=== PATIENT | male | born 1950 | race Caucasian/White ===

== ENCOUNTER → 2022-06-18 | Day surgery (SDC) | payer MEDICARE, BC ==
[2022-06-15 11:19] LABS: BASOPHILS % 0.5 % (0.0-1.0); EOSINOPHILS # (AUTO) 0.3 (0.0-0.4); EOSINOPHILS % 3.6 % (0.0-6.0); HEMATOCRIT 49.4 % (38.2-49.6); HEMOGLOBIN 16.4 g/dL (14.0-18.0); LYMPHOCYTES # (AUTO) 1.7 (1.0-3.2); MEAN CORPUSCULAR HEMOGLOBIN 30.3 pg (28-32); MEAN CORPUSCULAR HGB CONC 33.2 g/dL (31-35); MEAN CORPUSCULAR VOLUME 91.3 fL (81-99); MONOCYTES # (AUTO) 0.9 (0.2-0.8); MONOCYTES % 12.5 % (4.4-11.3); NEUTROPHILS # (AUTO) 4.4 (2.1-6.9); NEUTROPHILS % 60.3 % (38.7-80.0); PLATELET COUNT 194 x10e3/uL (140-360); RED BLOOD COUNT 5.41 x10e6/uL (4.3-5.7); RED CELL DISTRIBUTION WIDTH 12.4 % (11.7-14.4)
[2022-06-15 11:41] LABS: ANION GAP 11.6 mmol/L (8-16); CALCIUM 9.7 mg/dL (8.4-10.2); CREATININE, SERUM 1.01 mg/dL (0.72-1.25); POTASSIUM 3.6 mmol/L (3.5-5.1)
[~2022-06-18] MED LIST: AMLODIPINE BESY10 MG PO; ASPRIN PO; ATORVASTATIN PO; AVODART0.5 MG PO; BUPIVACAINE 0.25% 30ML SDV ONE; CALCIUM ACETAT667 M1 PO; CARVEDILOL12.5 MG PO; FLOMAX0.4 MG PO; HYDROCHLOROTHIA25 MG PO; HYDROCODONE/APAP 7.5MG-325MG 1 EA TAB ONE; LANSOPRAZOLE30 MG; MULTIVITAMIN SENIOR PO; OMEPRAZOLE-BIC1 EACH PO; RAPAFLO8 MG PO; TOPROL XL25 MG PO
[2022-06-18 13:15] VITALS: BP 136/74
== END | disposition home or self-care (01) ==
LOC: OR 09:19
PROVIDERS: ATTEND Surgery
DX: K42.9 Umbilical hernia without obstruction or gangrene (principal); I10 Essential (primary) hypertension; N40.0 Benign prostatic hyperplasia without lower urinary tract symptoms; Z01.810 Encounter for preprocedural cardiovascular examination; Z01.812 Encounter for preprocedural laboratory examination; Z01.818 Encounter for other preprocedural examination; Z79.82 Long term (current) use of aspirin; Z79.899 Other long term (current) drug therapy
CPT/HCPCS: 36415; 49585; 71046; 80048; 85025; 88302; 93005; C1781